=== PATIENT | male | born 1990 | race Caucasian/White ===

== ENCOUNTER 2017-01-19 07:58 | Day surgery (SDC) | payer OTHER ==
[2017-01-19] MEDS ORDERED: Lactated Ringers 1,000 ML IV SCH (08:45)
[2017-01-19] MEDS ORDERED: fentaNYL 100 MCG/2 ML SDV ONE (09:01)
[2017-01-19] MEDS ORDERED: Propofol 200 MG/20 ML SDV ONE (09:01)
[2017-01-19] MEDS ORDERED: Midazolam 1 MG/ML 2 ML SDV ONE (09:02)
[2017-01-19 10:31] VITALS: BP 128/73
--- NOTE | 2017-01-19 14:47 | OR ---
DATE OF PROCEDURE: 01/19/2017 PREOPERATIVE DIAGNOSIS: A sensation of mass in the esophagus. POSTOPERATIVE DIAGNOSIS: Gastroesophageal reflux disease. PROCEDURE: Esophagogastroduodenoscopy with biopsy of gastroesophageal junction. SURGEON: Grzegorz Montiel MD. ANESTHESIA: IV anesthesia with monitored anesthesia care. INDICATIONS: This 26-year-old white male is referred for an upper endoscopy because of a globus sensation. He feels like there is something in his throat, which he cannot cough or spit up. He was treated for gastroesophageal reflux disease, which only helped a little. I counseled him for the procedure, including risks and alternatives, and he gave his informed consent to proceed. DESCRIPTION OF PROCEDURE: The patient was placed in the left lateral decubitus position. IV anesthesia was administered by the Anesthesia Service. Time-out was held. The flexible video Olympus upper endoscope was passed through his mouth, down to the esophagus, and into his stomach. The scope was easily passed through the pylorus, into the duodenum , reaching its third portion. The scope was then slowly withdrawn, examining the mucosa throughout. The duodenal mucosa appeared unremarkable. The scope was brought back through the pylorus. The antrum appeared unremarkable. The scope was retroflexed. The proximal stomach appeared unremarkable. The scope was straightened and brought up to the GE junction. This was abnormal in that the Z-line was not straight consistent with gastroesophageal reflux disease. We obtained multiple, totalling six, biopsies of the gastroesophageal junction. The scope was then brought proximally up through remainder of the esophagus, which otherwise appeared unremarkable and it was removed. He tolerated the procedure well. Grzegorz Montiel MD /[id number] MTDD
== END 2017-01-19 10:52 | disposition home or self-care (01) ==
LOC: JP.SDS 07:58
PROVIDERS: ATTEND Surgery
DX: K22.8 Other specified diseases of esophagus (principal); K21.9 Gastro-esophageal reflux disease without esophagitis; F41.9 Anxiety disorder, unspecified; Z98.890 Other specified postprocedural states
CPT/HCPCS: 43239; J2250; J2704; J3010; J7120; 88305